=== PATIENT | female | born 1955 | race Caucasian/White ===

== ENCOUNTER → 2022-07-13 | Outpatient (CLI) | payer MEDICARE, BC ==
[~2022-07-13] MED LIST: GADOBUTROL 15 MMOL/15 ML (GADAVIST) VIAL IV ONE
--- NOTE | 2022-07-15 11:34 | Diagnostic Imaging Report ---
TECHNIQUE: Utilizing 1.5 Geovanna magnet, patient was placed in a prone position with 8-channel dual breast coil utilized. Axial STIR precontrasted image and axial T1 fat-sat postcontrast high-resolution images obtained. Axial T2-weighted images precontrast, bilaterally, as well. Sagittal vibrant temporal images were obtained pre and post contrast with bolus technique utilized of gadolinium. Images are postcontrast immediately and subsequently for 7 minutes. Sagittal postcontrast imaging also obtained. Pre and post contrasted images are then evaluated with [employer] for evaluation of possible angiogenesis. INDICATION: Left breast pain COMPARISONS: 06/08/2022 and 09/03/2019 FINDINGS: The bilateral breasts demonstrate mild background glandularity. The bilateral breasts demonstrate moderate background enhancement. No significant axillary or internal mammary adenopathy. Visualized portions of the chest wall and upper abdomen are grossly unremarkable. Scattered small T2 hyperintense cysts are identified within the bilateral breasts. Multiple scattered foci of enhancement are noted within the bilateral breasts. No suspicious enhancing mass or non-mass enhancement within either breast. IMPRESSION: No evidence of malignancy. In particular, no suspicious abnormality to correspond to the left breast pain. Recommend clinical correlation. BI-RADS Category 2: Benign findings FOLLOW-UP: 1. Clinical correlation and clinical follow-up for the left breast pain without suspicious imaging findings. 2. Patient is due for annual mammography in June 2023. Dictated by: Dictated on workstation # [id number]
== END ==
LOC: RAD 08:32
PROVIDERS: ATTEND Family Medicine
DX: N64.4 Mastodynia (principal); R07.9 Chest pain, unspecified
CPT/HCPCS: 77049